=== PATIENT | male | born 1950 | race Caucasian/White ===

== ENCOUNTER 2025-03-23 10:54 | Emergency (ER) | payer MEDICAID ==
[~2025-03-23] VITALS: Ht 175.3 cm; Wt 70.0 kg
[2025-03-23 10:56] VITALS: O2SAT 96
[2025-03-23 11:33] LABS: BASOPHILS % 0.5 % (0.0-2.0); EOSINOPHILS % 3.7 % (0.0-5.0); HEMATOCRIT. 37.7 % (42.0-52.0); HEMOGLOBIN. 13.3 g/dL (14.0-18.0); LYMPHOCYTES % 19.2 % (20.0-50.0); MEAN PLATELET VOLUME 6.5 fl (7.4-10.4); MONOCYTES % 9.2 % (2.0-8.0); NEUTROPHILS % 67.4 % (40.0-76.0); PLATELET 246 x1000/uL (130-400); RED BLOOD CELL COUNT 4.11 mill/uL (4.7-6.1); RED CELL DISTRIBUTION WIDTH 13.7 % (11.6-14.6)
[2025-03-23 11:47] LABS: CREATININE 1.4 mg/dL (0.6-1.3); UREA NITROGEN BLOOD 24 mg/dL (9-23)
[2025-03-23 11:49] LABS: ASPARTATE AMINOTRANSFERASE 29 IU/L (<34); BILIRUBIN DIRECT 0.2 mg/dL (<=3.0); BILIRUBIN TOTAL 0.6 mg/dL (0.1-1.0); PROTEIN TOTAL 7.2 g/dL (6.0-8.3)
[2025-03-23 12:07] LABS: CLARITY URINE CLEAR (CLEAR); COLOR URINE DARK YELLOW (YELLOW); GLUCOSE URINE NEGATIVE (NEGATIVE); KETONES URINE NEGATIVE (NEGATIVE); LEUKOCYTE ESTERASE URINE NEGATIVE (NEGATIVE); NITRITE URINE NEGATIVE (NEGATIVE); OCCULT BLOOD URINE NEGATIVE (NEGATIVE); PH URINE 7.0 (4.5-8.0); PROTEIN URINE NEGATIVE (NEGATIVE); SPECIFIC GRAVITY URINE 1.017 (1.005-1.030); UROBILINOGEN URINE 0.2 E.U./dL (0.2-1.0)
[2025-03-23] MEDS: KETOROLAC 30MG/ML VIAL IM ONE (12:15)
[2025-03-23] MEDS ORDERED: AMOX1TAB16 MT (13:24)
[2025-03-23 14:06] VITALS: BP 120/74; PULSE 90; RESP 18; TEMP 36.9; O2SAT 97
== END 2025-03-23 14:07 | disposition home or self-care (01) ==
LOC: ER 10:54
DX: K57.92 Diverticulitis of intestine, part unspecified, without perforation or abscess without bleeding (principal); D49.0 Neoplasm of unspecified behavior of digestive system; E03.9 Hypothyroidism, unspecified; I10 Essential (primary) hypertension; Z85.528 Personal history of other malignant neoplasm of kidney; Z90.49 Acquired absence of other specified parts of digestive tract; Z90.5 Acquired absence of kidney
CPT/HCPCS: 99285; 74176; 80076; 80048; 81003; 83690; 85025; 36415; 96372; J1885